=== PATIENT | male | born 1980 | race Caucasian/White ===

== ENCOUNTER 2020-11-21 10:43 | Outpatient (CLI) | payer BC, SELFPAY ==
--- NOTE | 2020-11-21 | ECHO_ITS ---
Patient Info Name: Jaime Sevilla Age: 40 years : 1980 Gender: Male Ht: 72 in Wt: 220 lbs BSA: 2.27 m2 HR: 52 bpm BP: 172 / 73 mmHg Heart Rhythm: Sinus Rhythm Exam Date: 11/21/2020 11:07 AM Exam Location: [facility] Patient Status: Outpatient Admit Date: 11/21/2020 Staff Ordering Physician: Radha, Lea Bradford MD Tenter Frame Back Tender: blanca Attending Provider: Radha, Lea Bradford MD Referring Physician: Radha ALLRED; Exam Type: CA echo doppler color flow Study Info Indications - Fm Hx Cardiovascular Disease Complete two-dimensional, color flow and Doppler transthoracic echocardiogram is performed. Summary 1. Complete two-dimensional, color flow and Doppler transthoracic echocardiogram is performed. 2. Unremarkable 2D Doppler echocardiogram. Left Ventricle Left ventricular chamber dimension is normal. Left ventricular systolic function is normal, estimated at 60-65%. The left ventricular diastolic function is normal. Right Ventricle Right ventricular chamber dimension is normal. Left Atria Left atrial chamber dimension is normal. Right Atria Right atrial chamber dimension is normal. Aortic Valve The aortic valve is normal. Pulmonic Valve The pulmonic valve is normal. Tricuspid Valve The tricuspid valve leaflets are normal. Pericardium/Pleural The pericardium appears normal. Aorta The aortic root size at the sinus of Valsalva is normal. Left Ventricular Outflow Tract Name Value Normal LVOT 2D LVOT Diameter 2.3 cm LVOT Doppler LVOT Peak Gradient 9 mmHg LVOT Mean Gradient 4 mmHg LVOT VTI 31 cm LVOT VTI/AV VTI Ratio 0.9 LVOT Stroke Volume 133 ml LVOT CO 25.2 l/min LVOT CI 11.1 l/min/m2 Pulmonic Valve Name Value Normal PV Doppler PV Peak Gradient 5 mmHg PV Regurgitation Doppler RI Peak End Diastolic Velocity 87 cm/s Mitral Valve Name Value Normal MV Doppler MV Decel Simpson 337 cm/s2 MV PHT 82 ms MV Area (PHT) 2.7 cm2 4.0-5.0 MV Diastolic Function MV E Peak Velocity 96 cm/s MV A Peak Velocity 81 cm/s
== END 2020-11-21 10:44 | disposition home or self-care (01) ==
PROVIDERS: PCP Family Medicine; Visit Provider Family Medicine
DX: Z82.49 Family history of ischemic heart disease and other diseases of the circulatory system (principal)
CPT/HCPCS: 93306